=== PATIENT | female | born 1955 | race Hispanic/Latino ===

== ENCOUNTER 2016-12-13 01:19 | Emergency (ER) | payer MEDICARE ==
[~2016-12-13 01:19] MED LIST: ADRENALIN ONE; CALCIUM CHLORIDE IV ONE; SODIUM BICARBONATE IV ONE
--- NOTE | 2016-12-13 01:32 | Emergency Department Report ---
ED CPR HPI - General Chief Complaint: Cardiac Arrest/CPR Stated Complaint: CARDIAC ARREST Time Seen by Provider: 12/13/16 01:28 Source: EMS (verbal report received from EMS.ems notes not available at time of chart dictation) - History of Present Illness Initial Comments: This is a 61-year-old obese female, brought to the hospital by EMS as out of hospital cardiac arrest. EMS reports that they were called to the patient's home at approximately 2:00 PM on the preceding day, patient apparently slid down , and declined/refused EMS transport. EMS reports that they were called back a few hours later, for unresponsiveness, for uncertain duration of time, and uncertain mechanism. EMS reports that the patient arrested in the field, and has been pulseless for over 15 minutes. EMS reports being unable to intubate the patient, therefore LMA was placed, she received high quality CPR, and received a few rounds of epinephrine. EMS verbally reports normal fingerstick. Upon arrival to the ER, patient is receiving chest compressions, pupils are fixed and dilated, and not responsive. Bedside ultrasound demonstrates no coordinated ventricular activity, and there is cardiac standstill. Neurological monitor demonstrates asystole. Patient received high quality CPR, standard ACLS medications. Unfortunately, return of spontaneous circulation could not be obtained. Resuscitation efforts are terminated, resuscitation efforts are terminated. Family is informed. Complaint: found unresponsive -: hour(s) Place: home Initial Findings in the Field: no pulse (asystolic) ROSC in the Field: No Associated Injuries: No Associated Symptoms: dizziness/weakness, other Treatments Prior to Arrival: intubation (placement of LMA), chest compressions, epinephrine mgs # ED Review of Systems ROS: Stated complaint: CARDIAC ARREST Other details as noted in HPI Comment: Unobtainable due to pts medical conditions ED Physical Exam - General Limitations: Other (patient has LMA, unresponsive) General appearance: other (intubated, unresponsive) - Eye Eye exam: Present: other (pupils are fixed and dilated, do not react to light) - ENT ENT exam: Present: other (LMA noted in oropharynx) - Neck Neck exam: Present: normal inspection - Respiratory Respiratory exam: Present: other (no breath sounds and was [id number] ventilation is applied) - Cardiovascular Cardiovascular Exam: Present: other (no pulses are appreciated) - GI/Abdominal GI/Abdominal exam: Present: soft, distended - External exam: Present: normal external exam - Extremities Exam Extremities exam: Present: normal inspection, other (intraosseous IV noted in left lower extremity, placed by EMS) - Back Exam Back exam: Present: normal inspection - Neurological Exam Neurological exam: Present: other (patient nonverbal, GCS of 3) - Psychiatric Psychiatric exam: Present: other (nonverbal, GCS of 3) - Skin Skin exam: Present: dry ED Medical Decision Making - Medical Decision Making Differential diagnosis: Acute coronary syndrome, pulmonary embolus, intracranial hemorrhage, sepsis Critical care attestation.: If time is entered above; I have spent that time in minutes in the direct care of this critically ill patient, excluding procedure time. ED Disposition Clinical Impression: Cardiac arrest Disposition: DC-20 Is pt being admited?: No Does the pt Need Aspirin: No Condition: Undetermined
== END 2016-12-13 03:00 ==
LOC: ED 01:19
DX: I46.9 Cardiac arrest, cause unspecified (principal)
CPT/HCPCS: 99285; J0171